=== PATIENT | male | born 1960 | race Caucasian/White ===

== ENCOUNTER 2016-06-27 15:10 | Emergency (ER) | payer MEDICARE, OTHER ==
[~2016-06-27] VITALS: Ht 185.4 cm; Wt 113.5 kg
[~2016-06-27 15:10] MED LIST: CITA20 PO; EFFE150C PO; FINA5TAB77 PO; FLUT1SPR9 EACH NARE; GABA300C3 PO; GLUC1000 PO; LINA290C PO; META48.53 PO; SIMV10 PO; SUBO8MIS SL; TERA5 PO; ZOLP10TA3 PO
[2016-06-27 15:11] VITALS: BP 126/85; PULSE 118; RESP 20; TEMP 98.5; O2SAT 92
--- NOTE | 2016-06-27 15:47 | PD ---
HPI Chief Complaint: Respiratory Symptoms Time Seen by Provider: 15:47 Travel History International Travel<30 days: No Contact w/Intl Traveler<30days: No Traveled to known affect area: No History of Present Illness HPI 55-year-old male with history of diabetes, presents to the emergency department for evaluation of left-sided chest pain worsening over the last 4 days. Patient states it is intermittent and occurs with deep inspiration. It radiates to his back. States that it has been so bad at times where he cannot get out of bed. Denies any nausea or vomiting. No recent illnesses, fever, or chills. Patient reports this is a diaphoresis or dizziness. Patient denies tobacco cigarette smoking however reports occasional marijuana use. Patient is on Suboxone currently. Denies IV drug use. He has no other symptoms to report at this time. [facility] Past Medical History ADD: Yes Arthritis: Yes Autoimmune Disease: No Blood Disorders: No Anxiety: Yes Depression: Yes Cancer: No Cardiovascular Problems: Yes High Cholesterol: Yes Diabetes: Yes Endocrine: Yes Genitourinary: No Immune Disorder: No Musculoskeletal: Yes (STATES HAVING BACK SURGERY IN [facility] - SCHEDULED FOR 07/2008) Neurologic: No Psychiatric: Yes Reproductive: No Respiratory: No Thyroid Disease: No Past Surgical History Abdominal Surgery: No AICD: No Arteriovenous Shunt: No Body Medical Devices: FOUR SCREWS IN RIGHT LEG. HX OF TENS UNIT Cardiac Surgery: No Ear Surgery: No Endocrine Surgery: No Eye Surgery: No Genitourinary Surgery: No Insulin Pump: No Oral Surgery: No Pacemaker: No Thoracic Surgery: No Other Surgery: Yes Social History Alcohol Use: No Tobacco Use: No Substance Use: No Allergies-Medications (Allergen,Severity, Reaction): Coded Allergies: No Known Allergies (Verified , 01/31/16) Reported Meds & Prescriptions Reported Meds & Active Scripts Active Reported Glucophage 1000 mg (Metformin HCl) 1,000 Mg Tab 1,000 Mg PO BID Linzess (Linaclotide) 290 Mcg Cap 290 Mcg PO DAILY Hytrin 5 Mg Cap (Terazosin HCl) 5 Mg Cap 5 Mg PO DAILY Proscar 5 Mg Tab (Finasteride) 5 Mg Tab 5 Mg PO DAILY Suboxone 8 mg/2 mg 8 mg/2 mg Subl 1 Strip SL TID SUBLINGUAL STRIP. Ambien 10 Mg Tab (Zolpidem Tartrate) 10 Mg Tab 10 Mg PO HS PRN Simvastatin 10 mg (Simvastatin) 10 Mg Tab 10 Mg PO HS Effexor Xr (Venlafaxine HCl) 150 Mg Cap 300 Mg PO DAILY Metamucil Original Textur (Psyllium/Dextrose) Pow 1 Tsp PO DAILY PRN Gabapentin 300 Mg Cap 300 Mg PO TID Flonase Allergy Relief (Fluticasone Propionate (Nasal)) 50 Mcg/Act Spr 1 [place] EACH NARE HS PRN Celexa 20 Mg Tab (Citalopram Hydrobromide) 20 Mg Tab 20 Mg PO DAILY Review of Systems Except as stated in HPI: all other systems reviewed are Neg Physical Exam Narrative GENERAL: Well-nourished male patient, lying in bed in no acute distress. SKIN: Warm and dry. HEAD: Atraumatic. Normocephalic. EYES: Pupils equal and round. No scleral icterus. No injection or drainage. ENT: No nasal bleeding or discharge. Mucous membranes pink and moist. NECK: Trachea midline. No JVD. CARDIOVASCULAR: Tachycardic rate and rhythm. No murmur appreciated. RESPIRATORY: No accessory muscle use. Diminished to auscultation. Breath sounds equal bilaterally. GASTROINTESTINAL: Abdomen soft, non-tender, nondistended. Hepatic and splenic margins not palpable. MUSCULOSKELETAL: No obvious deformities. No clubbing. No cyanosis. No edema. NEUROLOGICAL: Awake and alert. No obvious cranial nerve deficits. Motor grossly within normal limits. Normal speech. Data Data Last Documented VS Vital Signs Date Time Temp Pulse Resp B/P Pulse Ox O2 Delivery O2 Flow Rate FiO2 06/27/16 15:11 98.5 118 20 126/85 92 Room Air Orders Electrocardiogram (06/27/16 15:41) Complete Blood Count With Diff (06/27/16 15:41) Basic Metabolic Panel (Bmp) (06/27/16 15:41) Ckmb (Isoenzyme) Profile (06/27/16 15:41) Troponin I (06/27/16 15:41) Chest, Single Ap (06/27/16 15:41) Iv Access Insert/Monitor (06/27/16 15:41) Ecg Monitoring (06/27/16 15:41) Oxygen Administration (06/27/16 15:41) Oximetry (06/27/16 15:41) D-Dimer (06/27/16 15:46) Coag Profile (3/1/17 15:46) Labs Laboratory Tests Test 06/27/16 15:55 White Blood Count 8.4 TH/MM3 Red Blood Count 4.25 MIL/MM3 Hemoglobin 11.3 GM/DL Hematocrit 33.6 % Mean Corpuscular Volume 79.2 FL Mean Corpuscular Hemoglobin 26.6 PG Mean Corpuscular Hemoglobin 33.6 % Concent Red Cell Distribution Width 16.0 % Platelet Count 325 TH/MM3 Mean Platelet Volume 7.7 FL Neutrophils (%) (Auto) 67.4 % Lymphocytes (%) (Auto) 19.8 % Monocytes (%) (Auto) 10.2 % Eosinophils (%) (Auto) 2.3 % Basophils (%) (Auto) 0.3 % Neutrophils # (Auto) 5.6 TH/MM3 Lymphocytes # (Auto) 1.7 TH/MM3 Monocytes # (Auto) 0.9 TH/MM3 Eosinophils # (Auto) 0.2 TH/MM3 Basophils # (Auto) 0.0 TH/MM3 CBC Comment AUTO DIFF Differential Total Cells 100 Counted Neutrophils % (Manual) 53 % Lymphocytes % 23 % Monocytes % 14 % Eosinophils % 3 % Basophils % 2 % Neutrophils # (Manual) 4.9 TH/MM3 Metamyelocytes 1 % Myelocytes 3 % Promyelocytes 1 % Differential Comment FINAL DIFF MANUAL Platelet Estimate NORMAL Platelet Morphology Comment NORMAL Red Cell Morphology Comment NORMAL Prothrombin Time 10.0 SEC Prothromb Time International 0.9 RATIO Ratio Activated Partial 29.9 SEC Thromboplast Time D-Dimer Quantitative (PE/DVT) 6.45 MG/L FEU Sodium Level 135 MEQ/L Potassium Level 4.3 MEQ/L Chloride Level 97 MEQ/L Carbon Dioxide Level 30.5 MEQ/L Anion Gap 8 MEQ/L Blood Urea Nitrogen 11 MG/DL Creatinine 1.03 MG/DL Estimat Glomerular Filtration 75 ML/MIN Rate Random Glucose 135 MG/DL Calcium Level 8.8 MG/DL Total Creatine Kinase 41 U/L Troponin I LESS THAN 0.02 NG/ML MDM Medical Decision Making Medical Screen Exam Complete: Yes Emergency Medical Condition: Yes Medical Record Reviewed: Yes Differential Diagnosis PE versus pneumothorax versus pneumonia versus ACS Narrative Course 55-year-old male presents to the emergency department for evaluation. Workup was initiated in triage. Was a medical bed becomes available, patient will be transferred and care assumed by the provider. Condition: Stable Samantha Puente Jun 27, 2016 15:47
[2016-06-27 16:09] LABS: AUTOMATED NEUTROPHIL # 5.6 TH/MM3 (1.8-7.7); BASOPHIL % 0.3 % (0.0-2.0); EOSINOPHIL # 0.2 TH/MM3 (0-0.4); EOSINOPHIL % 2.3 % (0.0-4.0); HEMATOCRIT 33.6 % (39.0-51.0); LYMPH % 19.8 % (9.0-44.0); LYMPHOCYTE # 1.7 TH/MM3 (1.0-4.8); MEAN CELL VOLUME 79.2 FL (80.0-100.0); MEAN CORPUSCULAR HEMOGLOBIN 26.6 PG (27.0-34.0); MEAN CORPUSCULAR HGB CONC 33.6 % (32.0-36.0); MONO % 10.2 % (0.0-8.0); NEUT % 67.4 % (16.0-70.0); PLATELET COUNT 325 TH/MM3 (150-450); RED BLOOD COUNT 4.25 MIL/MM3 (4.50-5.90); WHITE BLOOD COUNT 8.4 TH/MM3 (4.0-11.0)
[2016-06-27 16:21] LABS: HEMO FLAGS AUTO DIFF
--- NOTE | 2016-06-27 16:27 | RADRPT ---
EXAM DATE/TIME: 06/27/2016 15:55 [facility] COMPARISON: CHEST SINGLE AP, January 31, 2016, 13:46. INDICATIONS : Chest pain. MEDICAL HISTORY: Diabetes mellitus type II. SURGICAL HISTORY : Spinal pain pump. ENCOUNTER: Initial ACUITY: 2 days PAIN SCORE: 5/10 LOCATION: Chest FINDINGS: Right lung is clear. There are increasing consolidative changes present in the left base when compare d to the most recent comparison study. The heart is minimally enlarged. Pulmonary vascularity is normal. Portions of the bony skeleton visu alized are unremarkable. CONCLUSION: Left lower lobe consolidation. Darrian Parry MD FACR on June 27, 2016 at 16:18 Board Certified Radiologist. This report was verified electronically.
[2016-06-27 16:30] LABS: APTT (PATIENT) 29.9 SEC (24.3-30.1); INTERNATIONAL NORMALIZED RATIO 0.9 RATIO
[2016-06-27 16:34] LABS: ANION GAP 8 MEQ/L (5-15); BICARBONATE 30.5 MEQ/L (21.0-32.0); BLOOD UREA NITROGEN 11 MG/DL (7-18); CHLORIDE 97 MEQ/L (98-107); GLOMERULAR FILTRATION RATE 75 ML/MIN (>89); POTASSIUM 4.3 MEQ/L (3.5-5.1); SODIUM (NA) 135 MEQ/L (136-145)
[2016-06-27 16:49] LABS: CREATINE KINASE 41 U/L (39-308)
[2016-06-27 17:40] LABS: BASOPHILS 2 % (0-2); EOSINOPHILS 3 % (0-4); METAMYELOCYTES 1 % (0-1); MYELOCYTES 3 % (0-0); NEUTROPHIL # MANUAL DIFF 4.9 TH/MM3 (1.8-7.7); POLYS (SEG NEUTROPHILS) 53 % (16-70); PROMYELOCYTES 1 % (0-0); WBC DIFF SAMPLE 100
[2016-06-27 17:41] LABS: PLATELET ESTIMATE SMEAR NORMAL (NORMAL); PLATELET MORPHOLOGY NORMAL (NORMAL); SCAN/DIFF FINAL DIFF MANUAL
[2016-06-28] MEDS ORDERED: METF1000 PO (16:49)
[2016-06-28] MEDS ORDERED: LINA290C PO (16:49)
[2016-06-28] MEDS ORDERED: FINA5TAB2 PO (16:49)
[2016-06-28] MEDS ORDERED: AMBI10TA PO (16:49)
[2016-06-28] MEDS ORDERED: CELE20TA PO (16:49)
[2016-06-28] MEDS ORDERED: GABA300C5 PO (16:49)
[2016-06-28] MEDS ORDERED: ZOCO10TA PO (16:49)
[2016-06-28] MEDS ORDERED: SUBO8MIS SL (16:49)
--- NOTE | 2016-06-28 23:59 | EKG ---
Date Performed: 06/27/2016 Time Performed: 15:47:45 PTAGE: 55 years EKG: Sinus rhythm POSSIBLE LEFT ATRIAL ENLARGEMENT MODERATE INTRAVENTRICULAR CONDUCTION DELAY BORDERLINE ECG PREVIOUS TRACING : 10/01/2001 12.32 Compared to prior tracing no significant change DOCTOR: Rafael Peralta Interpretating Date/Time 06/28/2016 23:58:25
== END 2016-06-27 18:05 | disposition left against medical advice (07) ==
LOC: NETRI 15:10
DX: R07.9 Chest pain, unspecified (principal); E11.9 Type 2 diabetes mellitus without complications; R94.31 Abnormal electrocardiogram [ECG] [EKG]; Z79.84 Long term (current) use of oral hypoglycemic drugs
CPT/HCPCS: 71010; 80048; 82550; 84484; 85007; 85027; 85379; 85610; 85730; 93005; 99284

== ENCOUNTER 2016-06-28 13:21 | Inpatient (IN) | payer MEDICARE, OTHER ==
[~2016-06-28] VITALS: Ht 185.4 cm; Wt 100.5 kg
[2016-06-28 13:24] VITALS: BP 130/72; PULSE 88; RESP 20; TEMP 97.9; O2SAT 89
--- NOTE | 2016-06-28 13:53 | PD ---
HPI Chief Complaint: Respiratory Symptoms Time Seen by Provider: 13:53 Travel History International Travel<30 days: No Contact w/Intl Traveler<30days: No Traveled to known affect area: No History of Present Illness HPI 55-year-old male with history of diabetes, presents to the emergency department for evaluation of left-sided chest pain worsening over the last 5 days. Patient was seen and evaluated yesterday in the emergency department but left AGAINST MEDICAL ADVICE prior to completion of his lab work. Patient states that his symptoms have worsened and the pain is not getting any better. He also had hemoptysis yesterday. Denies any recent illnesses. No fevers or chills. Moderate shortness of breath. No other symptoms to report. PFSH Past Medical History ADD: Yes Arthritis: Yes Autoimmune Disease: No Blood Disorders: No Anxiety: Yes Depression: Yes Cancer: No Cardiovascular Problems: Yes High Cholesterol: Yes Diabetes: Yes Endocrine: Yes Genitourinary: No Immune Disorder: No Musculoskeletal: Yes (STATES HAVING BACK SURGERY IN [facility] - SCHEDULED FOR 07/2008) Neurologic: No Psychiatric: Yes Reproductive: No Respiratory: No Thyroid Disease: No Past Surgical History Abdominal Surgery: No AICD: No Arteriovenous Shunt: No Body Medical Devices: FOUR SCREWS IN RIGHT LEG. HX OF TENS UNIT Cardiac Surgery: No Ear Surgery: No Endocrine Surgery: No Eye Surgery: No Genitourinary Surgery: No Insulin Pump: No Oral Surgery: No Pacemaker: No Thoracic Surgery: No Other Surgery: Yes Social History Alcohol Use: No Tobacco Use: No Substance Use: No Allergies-Medications (Allergen,Severity, Reaction): Coded Allergies: No Known Allergies (Verified , 06/28/16) Reported Meds & Prescriptions Reported Meds & Active Scripts Active Reported Finasteride 5 Mg Tab 5 Mg PO DAILY Do not crush. Zocor (Simvastatin) 10 Mg Tab 10 Mg PO DAILY Linzess (Linaclotide) 290 Mcg Cap 290 Mcg PO DAILY Gabapentin 300 Mg Cap 300 Mg PO TID Ambien (Zolpidem Tartrate) 10 Mg Tab 10 Mg PO HS PRN Suboxone Sublingual Film (Buprenorphine-Naloxone Sublingual Film) 8-2 Mg Film 1 Film SL TID Unique ID number required: Metformin (Metformin HCl) 1,000 Mg Tab 1,000 Mg PO BIDPC With meals Celexa (Citalopram Hydrobromide) 20 Mg Tab 20 Mg PO DAILY Review of Systems Except as stated in HPI: all other systems reviewed are Neg Physical Exam Narrative GENERAL: Well-nourished male patient, ambulatory and in no acute distress SKIN: Warm and dry. HEAD: Atraumatic. Normocephalic. EYES: Pupils equal and round. No scleral icterus. No injection or drainage. ENT: No nasal bleeding or discharge. Mucous membranes pink and moist. NECK: Trachea midline. No JVD. CARDIOVASCULAR: Regular rate and rhythm. No murmur appreciated. RESPIRATORY: No accessory muscle use. Diminished to auscultation. Breath sounds equal bilaterally. GASTROINTESTINAL: Abdomen soft, non-tender, nondistended. Hepatic and splenic margins not palpable. MUSCULOSKELETAL: No obvious deformities. No clubbing. No cyanosis. No edema. NEUROLOGICAL: Awake and alert. No obvious cranial nerve deficits. Motor grossly within normal limits. Normal speech. PSYCHIATRIC: Appropriate mood and affect; insight and judgment normal. Data Data Last Documented VS Vital Signs Date Time Temp Pulse Resp B/P Pulse Ox O2 Delivery O2 Flow Rate FiO2 06/28/16 13:24 97.9 88 20 130/72 89 Room Air Orders Iv Access Insert/Monitor (06/28/16 13:49) Ct Pulmonary Angiogram (06/28/16 ) Iohexol 350 Inj (Omnipaque 350 Inj) (06/28/16 14:40) Lactic Acid Sepsis Protocol (06/28/16 16:07) Complete Blood Count With Diff (06/28/16 16:07) Basic Metabolic Panel (Bmp) (06/28/16 16:07) Blood Culture (06/28/16 16:07) Ceftriaxone Inj (Rocephin Inj) (06/28/16 16:30) Azithromycin Inj (Zithromax Inj) (06/28/16 16:30) Sodium Chlor 0.9% 1000 Ml Inj (Ns 1000 M (06/28/16 16:30) Electrocardiogram (06/28/16 ) Aspirin (Aspirin) (06/28/16 18:45) Ckmb (Isoenzyme) Profile (06/28/16 18:53) Prothrombin Time / Inr (Pt) (06/28/16 18:53) Act Partial Throm Time (Ptt) (06/28/16 18:53) Troponin I (06/28/16 18:53) Admit Order (Ed Use Only) (06/28/16 18:54) Labs Laboratory Tests Test 06/28/16 06/28/16 16:00 16:17 White Blood Count 9.6 TH/MM3 Red Blood Count 4.24 MIL/MM3 Hemoglobin 11.4 GM/DL Hematocrit 34.0 % Mean Corpuscular Volume 80.1 FL Mean Corpuscular Hemoglobin 26.8 PG Mean Corpuscular Hemoglobin 33.5 % Concent Red Cell Distribution Width 16.1 % Platelet Count 363 TH/MM3 Mean Platelet Volume 7.7 FL Neutrophils (%) (Auto) 61.1 % Lymphocytes (%) (Auto) 23.6 % Monocytes (%) (Auto) 9.3 % Eosinophils (%) (Auto) 5.6 % Basophils (%) (Auto) 0.4 % Neutrophils # (Auto) 5.9 TH/MM3 Lymphocytes # (Auto) 2.3 TH/MM3 Monocytes # (Auto) 0.9 TH/MM3 Eosinophils # (Auto) 0.5 TH/MM3 Basophils # (Auto) 0.0 TH/MM3 CBC Comment AUTO DIFF Differential Total Cells 100 Counted Neutrophils % (Manual) 53 % Band Neutrophils % 4 % Lymphocytes % 27 % Monocytes % 7 % Eosinophils % 7 % Basophils % 1 % Neutrophils # (Manual) 5.6 TH/MM3 Myelocytes 1 % Differential Comment FINAL DIFF MANUAL Platelet Estimate NORMAL Platelet Morphology Comment NORMAL Sodium Level 139 MEQ/L Potassium Level 4.0 MEQ/L Chloride Level 98 MEQ/L Carbon Dioxide Level 33.9 MEQ/L Anion Gap 7 MEQ/L Blood Urea Nitrogen 10 MG/DL Creatinine 0.63 MG/DL Estimat Glomerular Filtration 132 ML/MIN Rate Random Glucose 96 MG/DL Lactic Acid Level 0.7 mmol/L Calcium Level 9.0 MG/DL [facility] Medical Decision Making Medical Screen Exam Complete: Yes Emergency Medical Condition: Yes Medical Record Reviewed: Yes Differential Diagnosis PE versus pneumonia versus influenza versus CHF versus ACS versus dissection Narrative Course 55-year-old male presents to the emergency department for evaluation of persistent worsening chest pain radiating to his back. Patient was seen and evaluated yesterday and left AGAINST MEDICAL ADVICE prior to completion of his workup. Patient presents today with oxygen saturation of 89% on room air. His labs were reviewed from yesterday with a d-dimer of 6.45. CBC was without acute concern. Mild anemia with hemoglobin of 11.3. No leukocytosis. BMP is within normal limits. I discussed this with Dr. Cooper who advised just moving forward with CT pulmonary angiogram. Last Impressions CT Angiography 06/28/16 0000 Signed Impressions: Service Date/Time: June 14:38 - CONCLUSION: 1. Bibasilar pneumonia greater in the left lower lobe. Treatment and followup recommended. 2. No evidence for pulmonary embolism. Jv Olvera MD Patient remains in triage. I discussed the patient with Dr. BELTRÁN as Dr. Cooper is in the middle of a trauma alert.. He recommends repeat lab work and admission based on patient's presentation of 89% oxygen saturation. This is ordered. Patient is brought back to a triage room where antibiotics were started for his pneumonia. Once A meD bed becomes available, patient will be transferred and care assumed by that provider. Condition: Stable Samantha Puente Jun 28, 2016 13:53
[2016-06-28] MEDS ORDERED: IOHEXOL 350 MG/ML 10 ML VIAL (for RAD DIAG) IV ONE (14:40)
--- NOTE | 2016-06-28 15:13 | RADRPT ---
EXAM DATE/TIME: 06/28/2016 14:38 [facility] COMPARISON: CHEST SINGLE AP, June 27, 2016, 15:55. INDICATIONS : Shortness of breath with coughing up blood and chest pain radiating to back for 5 days. IV CONTRAST: 75 cc Omnipaque 350 (iohexol) IV RADIATION DOSE: 23.24 CTDIvol (mGy) MEDICAL HISTORY : Cardiovascular disease. Diabetes mellitus type 2. SURGICAL HISTORY : None. ENCOUNTER: Initial ACUITY: 4 - 6 days PAIN SCALE: 7/10 LOCATION: chest TECHNIQUE: Volumetric scanning of the chest was performed using a pulmonary embolism protocol MIP images were re constructed. Using automated exposure control and adjustment of the mA and/or kV according to patien t size, radiation dose was kept as low as reasonably achievable to obtain optimal diagnostic quality images. FINDINGS: PULMONARY ARTERIES: No filling defects are seen in the pulmonary arteries through the segmental level. LUNGS: There is bibasilar consolidation greater in the left lower lobe. Minimal patchy densities in the uppe r portions of the lower lobes.. No concerning pulmonary nodule is visualized. PLEURAE: There is no pleural thickening or pleural effusion. MEDIASTINUM: There is good visualization of the great vessels of the middle mediastinum. No evidence of mediastin al or hilar adenopathy/mass. MUSCULOSKELETAL: Within normal limits for patient age. MISCELLANEOUS: The visualized upper abdominal organs demonstrate no acute abnormality. CONCLUSION: 1. Bibasilar pneumonia greater in the left lower lobe. Treatment and followup recommended. 2. No evidence for pulmonary embolism. Jv Olvera MD on June 28, 2016 at 15:07 Board Certified Radiologist. This report was verified electronically.
[2016-06-28] MEDS ORDERED: AZITHROMYCIN INJ 500 MG in SODIUM CHLOR 0.9% 250 ML INJ 250 ML IV ONE (16:30)
[2016-06-28] MEDS ORDERED: SODIUM CHLOR 0.9% 1000 ML INJ 1,000 ML IV ONE (16:30)
[2016-06-28] MEDS ORDERED: cefTRIAXone INJ 1,000 MG in SODIUM CHLORIDE 0.9% INJ 100 ML IV ONE (16:30)
[2016-06-28] MEDS ORDERED: SUBO8MIS SL (16:49)
[2016-06-28] MEDS ORDERED: LINA290C PO (16:49)
[2016-06-28] MEDS ORDERED: CELE20TA PO (16:49)
[2016-06-28] MEDS ORDERED: AMBI10TA PO (16:49)
[2016-06-28] MEDS ORDERED: GABA300C5 PO (16:49)
[2016-06-28] MEDS ORDERED: ZOCO10TA PO (16:49)
[2016-06-28] MEDS ORDERED: FINA5TAB2 PO (16:49)
[2016-06-28] MEDS ORDERED: METF1000 PO (16:49)
[2016-06-28 17:18] LABS: AUTOMATED NEUTROPHIL # 5.9 TH/MM3 (1.8-7.7); BASOPHIL % 0.4 % (0.0-2.0); EOSINOPHIL # 0.5 TH/MM3 (0-0.4); EOSINOPHIL % 5.6 % (0.0-4.0); LYMPH % 23.6 % (9.0-44.0); LYMPHOCYTE # 2.3 TH/MM3 (1.0-4.8); MEAN CELL VOLUME 80.1 FL (80.0-100.0); MEAN CORPUSCULAR HEMOGLOBIN 26.8 PG (27.0-34.0); MEAN CORPUSCULAR HGB CONC 33.5 % (32.0-36.0); MONO % 9.3 % (0.0-8.0); NEUT % 61.1 % (16.0-70.0); PLATELET COUNT 363 TH/MM3 (150-450); RED BLOOD COUNT 4.24 MIL/MM3 (4.50-5.90); RED CELL DISTRIBUTION WIDTH 16.1 % (11.6-17.2); WHITE BLOOD COUNT 9.6 TH/MM3 (4.0-11.0)
[2016-06-28 17:33] LABS: BICARBONATE 33.9 MEQ/L (21.0-32.0)
[2016-06-28 17:48] LABS: HEMO FLAGS AUTO DIFF
[2016-06-28 17:59] LABS: BANDS 4 % (0-6); BASOPHILS 1 % (0-2); EOSINOPHILS 7 % (0-4); MYELOCYTES 1 % (0-0); NEUTROPHIL # MANUAL DIFF 5.6 TH/MM3 (1.8-7.7); PLATELET ESTIMATE SMEAR NORMAL (NORMAL); PLATELET MORPHOLOGY NORMAL (NORMAL); POLYS (SEG NEUTROPHILS) 53 % (16-70); SCAN/DIFF FINAL DIFF MANUAL; WBC DIFF SAMPLE 100
[2016-06-28] MEDS ORDERED: ASPIRIN 325 MG TAB PO ONE (18:45)
--- NOTE | 2016-06-28 18:53 | PD ---
Physical Exam Date Seen by Provider: Jun 28, 2016 Data Data Last Documented VS Vital Signs Date Time Temp Pulse Resp B/P Pulse Ox O2 Delivery O2 Flow Rate FiO2 06/28/16 13:24 97.9 88 20 130/72 89 Room Air Orders Iv Access Insert/Monitor (06/28/16 13:49) Ct Pulmonary Angiogram (06/28/16 ) Iohexol 350 Inj (Omnipaque 350 Inj) (06/28/16 14:40) Lactic Acid Sepsis Protocol (06/28/16 16:07) Complete Blood Count With Diff (06/28/16 16:07) Basic Metabolic Panel (Bmp) (06/28/16 16:07) Blood Culture (06/28/16 16:07) Ceftriaxone Inj (Rocephin Inj) (06/28/16 16:30) Azithromycin Inj (Zithromax Inj) (06/28/16 16:30) Sodium Chlor 0.9% 1000 Ml Inj (Ns 1000 M (06/28/16 16:30) Electrocardiogram (06/28/16 ) Aspirin (Aspirin) (06/28/16 18:45) Ckmb (Isoenzyme) Profile (06/28/16 18:53) Prothrombin Time / Inr (Pt) (06/28/16 18:53) Act Partial Throm Time (Ptt) (06/28/16 18:53) Troponin I (06/28/16 18:53) Labs Laboratory Tests Test 06/28/16 06/28/16 16:00 16:17 White Blood Count 9.6 TH/MM3 Red Blood Count 4.24 MIL/MM3 Hemoglobin 11.4 GM/DL Hematocrit 34.0 % Mean Corpuscular Volume 80.1 FL Mean Corpuscular Hemoglobin 26.8 PG Mean Corpuscular Hemoglobin 33.5 % Concent Red Cell Distribution Width 16.1 % Platelet Count 363 TH/MM3 Mean Platelet Volume 7.7 FL Neutrophils (%) (Auto) 61.1 % Lymphocytes (%) (Auto) 23.6 % Monocytes (%) (Auto) 9.3 % Eosinophils (%) (Auto) 5.6 % Basophils (%) (Auto) 0.4 % Neutrophils # (Auto) 5.9 TH/MM3 Lymphocytes # (Auto) 2.3 TH/MM3 Monocytes # (Auto) 0.9 TH/MM3 Eosinophils # (Auto) 0.5 TH/MM3 Basophils # (Auto) 0.0 TH/MM3 CBC Comment AUTO DIFF Differential Total Cells 100 Counted Neutrophils % (Manual) 53 % Band Neutrophils % 4 % Lymphocytes % 27 % Monocytes % 7 % Eosinophils % 7 % Basophils % 1 % Neutrophils # (Manual) 5.6 TH/MM3 Myelocytes 1 % Differential Comment FINAL DIFF MANUAL Platelet Estimate NORMAL Platelet Morphology Comment NORMAL Sodium Level 139 MEQ/L Potassium Level 4.0 MEQ/L Chloride Level 98 MEQ/L Carbon Dioxide Level 33.9 MEQ/L Anion Gap 7 MEQ/L Blood Urea Nitrogen 10 MG/DL Creatinine 0.63 MG/DL Estimat Glomerular Filtration 132 ML/MIN Rate Random Glucose 96 MG/DL Lactic Acid Level 0.7 mmol/L Calcium Level 9.0 MG/DL [facility] Medical Record Reviewed: Yes Supervised Visit with CARLITOS: Yes Interpretation(s) Vital Signs Date Time Temp Pulse Resp B/P Pulse Ox O2 Delivery O2 Flow Rate FiO2 06/28/16 13:24 97.9 88 20 130/72 89 Room Air Last Impressions CT Angiography 06/28/16 0000 Signed Impressions: Service Date/Time: June 14:38 - CONCLUSION: 1. Bibasilar pneumonia greater in the left lower lobe. Treatment and followup recommended. 2. No evidence for pulmonary embolism. Jv Olvera MD CBC & BMP Diagram 06/28/16 16:00 06/28/16 16:17 Narrative Course I, Dr. Frye, have reviewed the advance practice practitioner's documentation and am in agreement, met with the patient face to face, made the diagnosis, and the medical decision making was done by me. Patient is a 55-year-old male with history of diabetes who returns to the emergency room for evaluation of left-sided pleuritic chest pain. Patient reports that for the past 5 days, he has had increased chest pain. Patient reports that chest pain is worse with taking deep breaths. Patient reports that he has been coughing, reports that he has been coughing up blood as well. Patient reports that he was seen in the emergency room yesterday but left AGAINST MEDICAL ADVICE as he was told that his dog was hit by a car and had to check on his dog. Patient reports that he return today for evaluation. Patient presents to emergency room today hypoxic with the oxygen sat of 89% on room air. Patient d-dimer was 6.45 yesterday, CT was performed today to rule out PE given his pleuritic chest pain and positive d-dimer. CTA showed that he had bibasilar pneumonia greater than left lower lobe with no obvious PE. Patient is agreeable to admission to the hospital. Patient has been pancultured and given azithromycin as well as Rocephin for treatment of pneumonia. *My assessment and Findings: Hypoxia with a pulse ox of 89% on room air (patient is not on home oxygen). Pleuritic chest pain secondary to multilobar pneumonia Case reviewed with Dr. Silva who admits patient to service under Dr. Dupont EKG at 1854: NSR at 67, qt/qtc: [id number]/425 Diagnosis Primary Impression: multilobar pneumonia Additional Impressions: Pleuritic chest pain Hypoxia Admitting Information Admitting Physician Requests: Admit Condition: Stable Harriett Frye DO Jun 28, 2016 18:53
[2016-06-28] MEDS ORDERED: ACETAMINOPHEN 325 MG TAB PO PRN (19:00)
[2016-06-28] MEDS ORDERED: SODIUM CHLORIDE 0.9% FLUSH 5 ML FLUSH FLUSH PRN (19:00)
[2016-06-28] MEDS ORDERED: NALOXONE HCL 0.4 MG/ML AMP IV PRN (19:00)
[2016-06-28] MEDS ORDERED: ONDANSETRON HCL 4 MG/2 ML VIAL IVP PRN (19:00)
[2016-06-28 19:14] VITALS: BP 126/65; PULSE 68; RESP 18; O2SAT 92
[2016-06-28 19:17] VITALS: O2SAT 96
[2016-06-28 19:40] LABS: APTT (PATIENT) 31.9 SEC (24.3-30.1); INTERNATIONAL NORMALIZED RATIO 0.9 RATIO; PROTHROMBIN TIME - PATIENT 10.2 SEC (9.8-11.6)
[2016-06-28 19:49] VITALS: O2SAT 96
[2016-06-28 19:58] LABS: CREATINE KINASE 32 U/L (39-308)
[2016-06-28] MEDS: SODIUM CHLORIDE 0.9% FLUSH 5 ML FLUSH FLUSH SCH (20:18)
[2016-06-28] MEDS: LEVOFLOXACIN 750 MG PREMIX INJ 150 ML IV SCH (21:30)
--- NOTE | 2016-06-28 22:50 | HHI.HP ---
[facility] Primary [facility] Physician [facility] Admission Diagnosis Multilobar Pneumonia Diagnoses: Chief Complaint: chest pain, sob Travel History International Travel<30 Days: No Contact w/Intl Traveler <30 Da: No Traveled to Known Affected Are: No History of Present Illness History taken from patient and the ED physician. 55-year-old male with no medical history presented to the ED with complaints of chest pain and short of breath for the past 3 days. Patient states he was in bed for 3 days because he was not feeling well, and came in yesterday for evaluation but had to leave AMA because his dog got hit by a car. He complains of having a cough with blood in his sputum, shortness of breath, and chest pain with deep breaths. Apon arrival patient o2 sat was found to be 89%. He denies any one else sick around him. He also denies any abdomen pain, nausea or vomiting. PCP at the [facility] Patient does wish to be discharged on PO antibiotics tomorrow if possible. Review of Systems Constitutional: COMPLAINS OF: Fatigue, DENIES: Fever, Chills Respiratory: COMPLAINS OF: Cough, Sputum production, Shortness of breath Cardiovascular: COMPLAINS OF: Chest pain, DENIES: Palpitations, Lower Extremity Edema Gastrointestinal: COMPLAINS OF: Vomiting, DENIES: Constipation, Diarrhea, Nausea Genitourinary: DENIES: Hematuria, Dysuria Musculoskeletal: DENIES: Back pain, Neck pain Integumentary: DENIES: Rash Hematologic/lymphatic: DENIES: Lymphadenopathy Immunologic/allergic: DENIES: Urticaria Neurologic: COMPLAINS OF: Headache Past Family Social History Past Medical History DM HTN (not currently on medication) BPH Past Surgical History RLE surgery Nerve stimulator in back 2008 Reported Medications Reported Meds & Active Scripts Active Reported Finasteride 5 Mg Tab 5 Mg PO DAILY Do not crush. Zocor (Simvastatin) 10 Mg Tab 10 Mg PO DAILY Linzess (Linaclotide) 290 Mcg Cap 290 Mcg PO DAILY Gabapentin 300 Mg Cap 300 Mg PO TID Ambien (Zolpidem Tartrate) 10 Mg Tab 10 Mg PO HS PRN Suboxone Sublingual Film (Buprenorphine-Naloxone Sublingual Film) 8-2 Mg Film 1 Film SL TID Unique ID number required: Metformin (Metformin HCl) 1,000 Mg Tab 1,000 Mg PO BIDPC With meals Celexa (Citalopram Hydrobromide) 20 Mg Tab 20 Mg PO DAILY Allergies: Coded Allergies: No Known Allergies (Verified , 06/28/16) Active Ordered Medications Current Medications Medications (Trade) Dose Ordered Sig/Merle Route Start Time Stop Time Status Last Admin (NS Flush) 2 ml UNSCH PRN FLUSH 06/28/16 19:00 (NS Flush) 2 ml BID FLUSH 06/28/16 21:00 06/28/16 20:18 (Tylenol) 650 mg Q4H PRN PO 06/28/16 19:00 (Zofran Inj) 4 mg Q6H PRN IVP 06/28/16 19:00 (Milk Of Magnesia Liq) 30 ml Q12H PRN PO 06/28/16 19:00 Naloxone HCl 0.4 mg 0.4 mg UNSCH PRN IV 06/28/16 19:00 (Levaquin 750 Mg Premix Inj) 150 ml @ 100 mls/hr Q24H IV 06/28/16 22:00 06/28/16 21:30 (CeleXA) 20 mg DAILY PO 06/29/16 09:00 (Proscar) 5 mg DAILY PO 06/29/16 09:00 (Neurontin) 300 mg TID PO 06/29/16 09:00 (Ambien) 10 mg HS PRN PO 06/28/16 21:15 (Pravachol) 20 mg DAILY PO 06/29/16 09:00 Patient Own Medication PT OWN MED:Linaclotide (Linzess) ... DAILY PO 06/29/16 09:00 Future Hold Family History Patient denies any family history Social History Tobacco use: denies Alcohol use: denies Illicit drug use: denies Physical Exam Vital Signs Vital Signs Date Time Temp Pulse Resp B/P Pulse Ox O2 Delivery O2 Flow Rate FiO2 06/28/16 19:49 96 Nasal Cannula 2.00 06/28/16 19:17 96 Nasal Cannula 2 06/28/16 19:14 68 18 126/65 92 Room Air 06/28/16 13:24 97.9 88 20 130/72 89 Room Air Physical Exam GENERAL: This is a well-nourished, well-developed patient, in no apparent distress. SKIN: No rashes, ecchymoses or lesions. Cool and dry. HEAD: Atraumatic. Normocephalic. EYES: Pupils equal round and reactive. ENT: Nose without bleeding, purulent drainage or septal hematoma. Airway patent. NECK: Trachea midline. No JVD CARDIOVASCULAR: Regular rate and rhythm without murmurs, gallops, or rubs. RESPIRATORY: Diminished Breath sounds equal bilaterally. No wheezes, rales, or rhonchi. GASTROINTESTINAL: Abdomen soft, non-tender, nondistended. No hepato-splenomegaly , or palpable masses. No guarding. MUSCULOSKELETAL: Extremities without clubbing, cyanosis, or edema. No joint tenderness, effusion, or edema noted. No calf tenderness. NEUROLOGICAL: Awake and alert. Motor and sensory grossly within normal limits. Normal speech. Laboratory Laboratory Tests Test 06/28/16 06/28/16 06/28/16 16:00 16:17 19:13 White Blood Count 9.6 Red Blood Count 4.24 Hemoglobin 11.4 Hematocrit 34.0 Mean Corpuscular Volume 80.1 Mean Corpuscular Hemoglobin 26.8 Mean Corpuscular Hemoglobin 33.5 Concent Red Cell Distribution Width 16.1 Platelet Count 363 Mean Platelet Volume 7.7 Neutrophils (%) (Auto) 61.1 Lymphocytes (%) (Auto) 23.6 Monocytes (%) (Auto) 9.3 Eosinophils (%) (Auto) 5.6 Basophils (%) (Auto) 0.4 Neutrophils # (Auto) 5.9 Lymphocytes # (Auto) 2.3 Monocytes # (Auto) 0.9 Eosinophils # (Auto) 0.5 Basophils # (Auto) 0.0 CBC Comment AUTO DIFF Differential Total Cells 100 Counted Neutrophils % (Manual) 53 Band Neutrophils % 4 Lymphocytes % 27 Monocytes % 7 Eosinophils % 7 Basophils % 1 Neutrophils # (Manual) 5.6 Myelocytes 1 Differential Comment FINAL DIFF MANUAL Platelet Estimate NORMAL Platelet Morphology Comment NORMAL Sodium Level 139 Potassium Level 4.0 Chloride Level 98 Carbon Dioxide Level 33.9 Anion Gap 7 Blood Urea Nitrogen 10 Creatinine 0.63 Estimat Glomerular Filtration 132 Rate Random Glucose 96 Lactic Acid Level 0.7 Calcium Level 9.0 Prothrombin Time 10.2 Prothromb Time International 0.9 Ratio Activated Partial 31.9 Thromboplast Time Total Creatine Kinase 32 Troponin I LESS THAN 0.02 Date/Time Procedure Status Source Growth 06/28/16 16:17 Aerobic Blood Culture Received Blood Peripheral Pending 06/28/16 16:17 Anaerobic Blood Culture Received Blood Peripheral Pending Result Diagram: 06/28/16 1600 06/28/16 [address] Angiography 06/28/16 0000 Signed Impressions: Service Date/Time: June 14:38 - CONCLUSION: 1. Bibasilar pneumonia greater in the left lower lobe. Treatment and followup recommended. 2. No evidence for pulmonary embolism. Jv Olvera MD Assessment and Plan Problem List: (1) Pneumonia ICD Code: J18.9 Status: Acute (2) DM (diabetes mellitus) ICD Code: E11.9 Status: Chronic Assessment and Plan 55 y/o male with a history of HTN (not currently on medication), DM, BPH presented with: Pneumonia Images: chest xray shows Bibasilar pneumonia greater in the left lower lobe. Treatment and followup recommended. No evidence for pulmonary embolism. -Levofloxacin IV DM, chronic -Accu checks AC/HS -hold Metformin due to CT angiogram DVT prophylaxis: SCDs Written by Rebekah MOY, acting as scribe for Dr. Dupont on 06/28/16 at 2237. The documentation accurately reflects the work performed [id number] and decisions made by me and the physician Dr Dupont on 06/28/16. The documentation accurately reflects the work performed [id number] by [place] on at 2237 Discussed Condition With Patient and ED physician Physician Certification 2 Midnight Certification Type: Admission for Inpatient Services Order for Inpatient Services The services are ordered in accordance with Medicare regulations or non- Medicare payer requirements, as applicable. In the case of services not specified as inpatient-only, they are appropriately provided as inpatient services in accordance with the 2-midnight benchmark. Estimated LOS (days): 3 days is the estimated time the patient will need to remain in the hospital, assuming treatment plan goals are met and no additional complications. Post-Hospital Plan: [place] Rebekah Denis Jun 28, 2016 22:50 Jocelin Dupont MD Jun 29, 2016 08:46
[2016-06-28] MEDS: ZOLPIDEM TARTRATE 10 MG TAB PO PRN (23:24)
[2016-06-28 23:34] VITALS: BP 128/61; PULSE 62; RESP 18; O2SAT 96
[2016-06-29] VITALS (7 sets, daily range): BP systolic 128–138; BP diastolic 57–87; PULSE 58–77; RESP 16–20; TEMP 97.4–98.5; O2SAT 92–99
[2016-06-29] MEDS: PRAVASTATIN SOD 20 MG TAB PO SCH (08:32)
[2016-06-29] MEDS: FINASTERIDE 5 MG TAB PO SCH (08:32)
[2016-06-29] MEDS: GABAPENTIN 300 MG CAP PO SCH ×3 (08:32→17:28)
[2016-06-29] MEDS: CITALOPRAM HYDROBROMIDE 20 MG TAB PO SCH (08:32)
[2016-06-29] MEDS: SODIUM CHLORIDE 0.9% FLUSH 5 ML FLUSH FLUSH SCH ×2 (08:32→20:29)
[2016-06-29] MEDS ORDERED: LINACLOTIDE 290 MCG PO SCH (09:00)
[2016-06-29] MEDS ORDERED: NON-FORMULARY DRUG (Linaclotide (Linzess) 290 MCG) PO SCH (09:00)
[2016-06-29] MEDS: MAGNESIUM HYDROXIDE SUSP 30 ML CUP PO PRN (10:20)
--- NOTE | 2016-06-29 12:00 | HHI.PR ---
Subjective Remarks This is a pleasant 55 y/o Male who came to ER with Multilobar Pneumonia, complaint of chest pain and Shortness of breath, for three days, he left AMA one day before when was seen in ER, he is been having cough and probable hemoptysis, Hypoxemic on admission, has DM II, Hypertension, BPH, RLE surgery, nerve stimulator back 2008, patient stable seen in the room in the presence of nurse Miss Lopez on CTA no PE, asked for Tylenol for pain, the patient wants to go home and asked for CXR and CBC for tomorrow in am and discharge Home if improving. Objective Vital Signs Date Time Temp Pulse Resp B/P Pulse Ox O2 Delivery O2 Flow Rate FiO2 06/29/16 10:21 97 21 06/29/16 00:58 Nasal Cannula 2.00 06/29/16 00:13 97.4 65 16 134/79 99 06/28/16 23:34 62 18 128/61 96 Nasal Cannula 2 06/28/16 19:49 96 Nasal Cannula 2.00 06/28/16 19:17 96 Nasal Cannula 2 06/28/16 19:14 68 18 126/65 92 Room Air 06/28/16 13:24 97.9 88 20 130/72 89 Room Air I/O 06/28/16 06/28/16 06/28/16 06/29/16 06/29/16 06/29/16 07:00 15:00 23:00 07:00 15:00 23:00 Intake Total 240 ml Output Total 0 ml Balance 240 ml Intake Oral 240 ml Output Urine Total 0 ml # Bowel Movements 0 Result Diagram: 06/28/16 1600 06/28/16 [address] Angiography 06/28/16 0000 Signed Impressions: Service Date/Time: June 14:38 - CONCLUSION: 1. Bibasilar pneumonia greater in the left lower lobe. Treatment and followup recommended. 2. No evidence for pulmonary embolism. Jv Olvera MD Procedures No procedures performed by patient. Other Results Laboratory Tests Test 06/28/16 06/28/16 06/28/16 16:00 16:17 19:13 White Blood Count 9.6 TH/MM3 Red Blood Count 4.24 MIL/MM3 Hemoglobin 11.4 GM/DL Hematocrit 34.0 % Mean Corpuscular Volume 80.1 FL Mean Corpuscular Hemoglobin 26.8 PG Mean Corpuscular Hemoglobin 33.5 % Concent Red Cell Distribution Width 16.1 % Platelet Count 363 TH/MM3 Mean Platelet Volume 7.7 FL Neutrophils (%) (Auto) 61.1 % Lymphocytes (%) (Auto) 23.6 % Monocytes (%) (Auto) 9.3 % Eosinophils (%) (Auto) 5.6 % Basophils (%) (Auto) 0.4 % Neutrophils # (Auto) 5.9 TH/MM3 Lymphocytes # (Auto) 2.3 TH/MM3 Monocytes # (Auto) 0.9 TH/MM3 Eosinophils # (Auto) 0.5 TH/MM3 Basophils # (Auto) 0.0 TH/MM3 CBC Comment AUTO DIFF Differential Total Cells 100 Counted Neutrophils % (Manual) 53 % Band Neutrophils % 4 % Lymphocytes % 27 % Monocytes % 7 % Eosinophils % 7 % Basophils % 1 % Neutrophils # (Manual) 5.6 TH/MM3 Myelocytes 1 % Differential Comment FINAL DIFF MANUAL Platelet Estimate NORMAL Platelet Morphology Comment NORMAL Sodium Level 139 MEQ/L Potassium Level 4.0 MEQ/L Chloride Level 98 MEQ/L Carbon Dioxide Level 33.9 MEQ/L Anion Gap 7 MEQ/L Blood Urea Nitrogen 10 MG/DL Creatinine 0.63 MG/DL Estimat Glomerular Filtration 132 ML/MIN Rate Random Glucose 96 MG/DL Lactic Acid Level 0.7 mmol/L Calcium Level 9.0 MG/DL Prothrombin Time 10.2 SEC Prothromb Time International 0.9 RATIO Ratio Activated Partial 31.9 SEC Thromboplast Time Total Creatine Kinase 32 U/L Troponin I LESS THAN 0.02 NG/ML Objective Remarks GENERAL: This is a well-nourished, well-developed patient, in no apparent distress. SKIN: No rashes, ecchymoses or lesions. Cool and dry. HEAD: Atraumatic. Normocephalic. EYES: Pupils equal round and reactive. ENT: Nose without bleeding, purulent drainage or septal hematoma. Airway patent. NECK: Trachea midline. No JVD CARDIOVASCULAR: Regular rate and rhythm without murmurs, gallops, or rubs. RESPIRATORY: Diminished Breath sounds equal bilaterally. No wheezes, rales, or rhonchi. GASTROINTESTINAL: Abdomen soft, non-tender, nondistended. No hepato-splenomegaly , or palpable masses. No guarding. MUSCULOSKELETAL: Extremities without clubbing, cyanosis, or edema. No joint tenderness, effusion, or edema noted. No calf tenderness. NEUROLOGICAL: Awake and alert. Motor and sensory grossly within normal limits. Normal speech. Medications and IVs Current Medications Medications (Trade) Dose Ordered Sig/Merle Route Start Time Stop Time Status Last Admin (NS Flush) 2 ml UNSCH PRN FLUSH 06/28/16 19:00 (NS Flush) 2 ml BID FLUSH 06/28/16 21:00 06/29/16 08:32 (Tylenol) 650 mg Q4H PRN PO 06/28/16 19:00 (Zofran Inj) 4 mg Q6H PRN IVP 06/28/16 19:00 (Milk Of Magnesia Liq) 30 ml Q12H PRN PO 06/28/16 19:00 06/29/16 10:20 Naloxone HCl 0.4 mg 0.4 mg UNSCH PRN IV 06/28/16 19:00 (Levaquin 750 Mg Premix Inj) 150 ml @ 100 mls/hr Q24H IV 06/28/16 22:00 06/28/16 21:30 (CeleXA) 20 mg DAILY PO 06/29/16 09:00 06/29/16 08:32 (Proscar) 5 mg DAILY PO 06/29/16 09:00 06/29/16 08:32 (Neurontin) 300 mg TID PO 06/29/16 09:00 06/29/16 08:32 (Ambien) 10 mg HS PRN PO 06/28/16 21:15 06/28/16 23:24 (Pravachol) 20 mg DAILY PO 06/29/16 09:00 06/29/16 08:32 Patient Own Medication PT OWN MED:Linaclotide (Linzess) ... DAILY PO 06/29/16 09:00 Hold A/P Assessment and Plan 1 Pneumonia has Bibasilar Pneumonia greater on the left lower lobe, on Levofloxacin rule out PE. continue Levofloxacin will follow CXR and CBC in am tomorrow. 2. DM II continue sliding scale. 3. Hypertension controlled. 4. BPH stable. DVT prophylaxis: SCDs Discharge Planning discharge home tomorrow if improving condition Ced Padilla MD Jun 29, 2016 12:00
[2016-06-29] MEDS: oxyCODONE/ACETAMINOPHEN 5 MG/325 MG TAB PO PRN ×2 (15:17→20:28)
[2016-06-29] MEDS: LEVOFLOXACIN 750 MG PREMIX INJ 150 ML IV SCH (20:28)
--- NOTE | 2016-06-29 23:19 | EKG ---
Date Performed: 06/28/2016 Time Performed: 18:54:42 PTAGE: 55 years EKG: Sinus rhythm NORMAL ECG PREVIOUS TRACING : 06/27/2016 15.47 DOCTOR: [place] Interpretating Date/Time 06/29/2016 23:16:09
[2016-06-30] MEDS: ZOLPIDEM TARTRATE 10 MG TAB PO PRN (00:32)
[2016-06-30] MEDS: oxyCODONE/ACETAMINOPHEN 5 MG/325 MG TAB PO PRN ×4 (00:32→16:35)
[2016-06-30] MEDS: CITALOPRAM HYDROBROMIDE 20 MG TAB PO SCH (07:55)
[2016-06-30] MEDS: MAGNESIUM HYDROXIDE SUSP 30 ML CUP PO PRN (07:55)
[2016-06-30] MEDS: SODIUM CHLORIDE 0.9% FLUSH 5 ML FLUSH FLUSH SCH (07:56)
[2016-06-30] MEDS: GABAPENTIN 300 MG CAP PO SCH ×3 (07:56→16:35)
[2016-06-30] MEDS: PRAVASTATIN SOD 20 MG TAB PO SCH (07:56)
[2016-06-30] MEDS: FINASTERIDE 5 MG TAB PO SCH (07:56)
[2016-06-30 08:00] VITALS: BP 129/80; PULSE 77; RESP 12; TEMP 98.4; O2SAT 95
[2016-06-30 09:21] LABS: AUTOMATED NEUTROPHIL # 6.1 TH/MM3 (1.8-7.7); BASOPHIL % 0.4 % (0.0-2.0); EOSINOPHIL # 0.5 TH/MM3 (0-0.4); EOSINOPHIL % 5.3 % (0.0-4.0); HEMATOCRIT 41.2 % (39.0-51.0); HEMO FLAGS DIFF FINAL; LYMPH % 21.6 % (9.0-44.0); MEAN CELL VOLUME 79.1 FL (80.0-100.0); MEAN CORPUSCULAR HEMOGLOBIN 26.9 PG (27.0-34.0); MEAN CORPUSCULAR HGB CONC 34.1 % (32.0-36.0); MONO % 6.3 % (0.0-8.0); NEUT % 66.4 % (16.0-70.0); PLATELET COUNT 523 TH/MM3 (150-450); RED BLOOD COUNT 5.21 MIL/MM3 (4.50-5.90); RED CELL DISTRIBUTION WIDTH 16.2 % (11.6-17.2); WHITE BLOOD COUNT 9.2 TH/MM3 (4.0-11.0)
[2016-06-30 09:40] LABS: BICARBONATE 33.2 MEQ/L (21.0-32.0); POTASSIUM 5.1 MEQ/L (3.5-5.1)
--- NOTE | 2016-06-30 10:11 | RADRPT ---
EXAM DATE/TIME: 06/30/2016 09:44 [place] COMPARISON: CT PULMONARY ANGIOGRAM, June 28, 2016, 14:38. CHEST SINGLE AP, June 27, 2016, 15:55. INDICATIONS : Short of Breath MEDICAL HISTORY : Cardiovascular disease. Diabetes mellitus type II. SURGICAL HISTORY : None. ENCOUNTER: Initial ACUITY: 1 week PAIN SCORE: 7/10 LOCATION: chest FINDINGS: Frontal and lateral views of the chest demonstrate normal-sized cardiac silhouette. There is persiste nt airspace consolidation in the left lower lobe with elevation of the left hemidiaphragm. No pleural effusion or pneumothorax is visualized. CONCLUSION: Stable consolidation in the left lower lobe. Joey Vicente MD on June 30, 2016 at 10:09 Board Certified Radiologist. This report was verified electronically.
[2016-06-30 12:00] VITALS: BP 124/70; PULSE 66; RESP 16; TEMP 98.2; O2SAT 95
[2016-06-30 16:00] VITALS: BP 134/87; PULSE 71; RESP 12; TEMP 97.1; O2SAT 95
--- NOTE | 2016-06-30 16:30 | HHI.PR ---
Subjective Remarks This is a pleasant 55 y/o Male who came to ER with Multilobar Pneumonia, complaint of chest pain and Shortness of breath, for three days, he left AMA one day before when was seen in ER, he is been having cough and probable hemoptysis, Hypoxemic on admission, has DM II, Hypertension, BPH, RLE surgery, nerve stimulator back 2008, patient stable seen in the room in the presence of nurse Miss Lopez on CTA no PE, asked for Tylenol for pain, patient stable walking in the aisle ready to go when I came to see him discussed results, he is receiving Levofloxacin will continue by mouth at home and follow with PCP. Objective Vital Signs Date Time Temp Pulse Resp B/P Pulse Ox O2 Delivery O2 Flow Rate FiO2 06/30/16 12:00 98.2 66 16 124/70 95 06/30/16 09:20 Room Air 21 06/30/16 08:00 98.4 77 12 129/80 95 06/29/16 20:00 Room Air 06/29/16 19:23 98.2 63 16 128/71 95 06/29/16 17:38 96 21 I/O 06/29/16 06/29/16 06/29/16 06/30/16 06/30/16 06/30/16 07:00 15:00 23:00 07:00 15:00 23:00 Intake Total 240 ml 720 ml 480 ml 720 ml Output Total 0 ml 950 ml 1225 ml Balance 240 ml -230 ml 480 ml -505 ml Intake Oral 240 ml 720 ml 480 ml 720 ml Output Urine Total 0 ml 950 ml 1225 ml # Voids 10 # Bowel Movements 0 0 1 0 Result Diagram: 06/30/16 0850 06/30/16 0850 Imaging Last Impressions Chest X-Ray 06/30/16 0000 Signed Impressions: Service Date/Time: Thursday, June 30, 2016 09:44 - CONCLUSION: Stable consolidation in the left lower lobe. Joey Vicente MD CT Angiography 06/28/16 0000 Signed Impressions: Service Date/Time: June 14:38 - CONCLUSION: 1. Bibasilar pneumonia greater in the left lower lobe. Treatment and followup recommended. 2. No evidence for pulmonary embolism. Jv Olvera MD Procedures No procedures performed by patient. Other Results Laboratory Tests Test 06/28/16 06/28/16 06/28/16 06/30/16 16:00 16:17 19:13 08:50 Differential Total Cells 100 Counted Neutrophils % (Manual) 53 % Band Neutrophils % 4 % Lymphocytes % 27 % Monocytes % 7 % Eosinophils % 7 % Basophils % 1 % Neutrophils # (Manual) 5.6 TH/MM3 Myelocytes 1 % Platelet Estimate NORMAL Platelet Morphology Comment NORMAL Lactic Acid Level 0.7 mmol/L Prothrombin Time 10.2 SEC Prothromb Time International 0.9 RATIO Ratio Activated Partial 31.9 SEC Thromboplast Time Total Creatine Kinase 32 U/L Troponin I LESS THAN 0.02 NG/ML White Blood Count 9.2 TH/MM3 Red Blood Count 5.21 MIL/MM3 Hemoglobin 14.0 GM/DL Hematocrit 41.2 % Mean Corpuscular Volume 79.1 FL Mean Corpuscular Hemoglobin 26.9 PG Mean Corpuscular Hemoglobin 34.1 % Concent Red Cell Distribution Width 16.2 % Platelet Count 523 TH/MM3 Mean Platelet Volume 7.6 FL Neutrophils (%) (Auto) 66.4 % Lymphocytes (%) (Auto) 21.6 % Monocytes (%) (Auto) 6.3 % Eosinophils (%) (Auto) 5.3 % Basophils (%) (Auto) 0.4 % Neutrophils # (Auto) 6.1 TH/MM3 Lymphocytes # (Auto) 2.0 TH/MM3 Monocytes # (Auto) 0.6 TH/MM3 Eosinophils # (Auto) 0.5 TH/MM3 Basophils # (Auto) 0.0 TH/MM3 CBC Comment DIFF FINAL Differential Comment Sodium Level 134 MEQ/L Potassium Level 5.1 MEQ/L Chloride Level 95 MEQ/L Carbon Dioxide Level 33.2 MEQ/L Anion Gap 6 MEQ/L Blood Urea Nitrogen 10 MG/DL Creatinine 0.83 MG/DL Estimat Glomerular Filtration 96 ML/MIN Rate Random Glucose 115 MG/DL Calcium Level 9.4 MG/DL Objective Remarks GENERAL: This is a well-nourished, well-developed patient, in no apparent distress. SKIN: No rashes, ecchymoses or lesions. Cool and dry. HEAD: Atraumatic. Normocephalic. EYES: Pupils equal round and reactive. ENT: Nose without bleeding, purulent drainage or septal hematoma. Airway patent. NECK: Trachea midline. No JVD CARDIOVASCULAR: Regular rate and rhythm without murmurs, gallops, or rubs. RESPIRATORY: Diminished Breath sounds equal bilaterally. No wheezes, rales, or rhonchi. GASTROINTESTINAL: Abdomen soft, non-tender, nondistended. No hepato-splenomegaly , or palpable masses. No guarding. MUSCULOSKELETAL: Extremities without clubbing, cyanosis, or edema. No joint tenderness, effusion, or edema noted. No calf tenderness. NEUROLOGICAL: Awake and alert. Motor and sensory grossly within normal limits. Normal speech. Medications and IVs Current Medications Medications (Trade) Dose Ordered Sig/Merle Route Start Time Stop Time Status Last Admin (NS Flush) 2 ml UNSCH PRN FLUSH 06/28/16 19:00 (NS Flush) 2 ml BID FLUSH 06/28/16 21:00 06/30/16 07:56 (Tylenol) 650 mg Q4H PRN PO 06/28/16 19:00 (Zofran Inj) 4 mg Q6H PRN IVP 06/28/16 19:00 (Milk Of Magnbreonna Liq) 30 ml Q12H PRN PO 06/28/16 19:00 06/30/16 07:55 Naloxone HCl 0.4 mg 0.4 mg UNSCH PRN IV 06/28/16 19:00 (Levaquin 750 Mg Premix Inj) 150 ml @ 100 mls/hr Q24H IV 06/28/16 22:00 06/29/16 20:28 (CeleXA) 20 mg DAILY PO 06/29/16 09:00 06/30/16 07:55 (Proscar) 5 mg DAILY PO 06/29/16 09:00 06/30/16 07:56 (Neurontin) 300 mg TID PO 06/29/16 09:00 06/30/16 16:35 (Ambien) 10 mg HS PRN PO 06/28/16 21:15 06/30/16 00:32 (Pravachol) 20 mg DAILY PO 06/29/16 09:00 06/30/16 07:56 Patient Own Medication PT OWN MED:Linaclotide (Linzess) ... DAILY PO 06/29/16 09:00 Hold (Percocet 5-325 Mg) 1 tab Q4H PRN PO 06/29/16 15:00 3/4/17 16:35 A/P Assessment and Plan 1 Pneumonia has Bibasilar Pneumonia greater on the left lower lobe, on Levofloxacin rule out PE. continue Levofloxacin, stable improving clinically, his CXR continue demonstrating stable left basal consolidation but improving clinically. 2. DM II continue sliding scale. 3. Hypertension controlled. 4. BPH stable. DVT prophylaxis: SCDs Discharge home and continue Levofloxacin for 7 more days to complete 10 and follow with PCP. Discharge Planning discharge home today. Ced Padilla MD Jun 30, 2016 16:30
[2016-06-30] MEDS ORDERED: LEVO750T33 PO ×3 (17:38→17:43)
--- NOTE | 2016-06-30 17:49 | HHI.DS ---
Discharge Summary Admission Date Jun 28, 2016 at 18:57 Discharge Date: Jun 30, 2016 Admitting Diagnosis Multilobar Pneumonia (1) Pneumonia ICD Code: J18.9 Diagnosis: Principal (2) DM (diabetes mellitus) ICD Code: E11.9 Diagnosis: Secondary Procedures No procedure performed. Brief History - From Admission History taken from patient and the ED physician. 55-year-old male with no medical history presented to the ED with complaints of chest pain and short of breath for the past 3 days. Patient states he was in bed for 3 days because he was not feeling well, and came in yesterday for evaluation but had to leave AMA because his dog got hit by a car. He complains of having a cough with blood in his sputum, shortness of breath, and chest pain with deep breaths. Apon arrival patient o2 sat was found to be 89%. He denies any one else sick around him. He also denies any abdomen pain, nausea or vomiting. PCP at the [facility] Patient does wish to be discharged on PO antibiotics tomorrow if possible. CBC/BMP: 06/30/16 0850 06/30/16 0850 Significant Findings Laboratory Tests Test 06/28/16 06/28/16 06/28/16 06/30/16 16:00 16:17 19:13 08:50 Red Blood Count 4.24 MIL/MM3 (4.50-5.90) Hemoglobin 11.4 GM/DL (13.0-17.0) Hematocrit 34.0 % (39.0-51.0) Mean Corpuscular Hemoglobin 26.8 PG 26.9 PG (27.0-34.0) (27.0-34.0) Monocytes (%) (Auto) 9.3 % (0.0-8.0) Eosinophils (%) (Auto) 5.6 % (0.0-4.0) 5.3 % (0.0-4.0) Eosinophils # (Auto) 0.5 TH/MM3 0.5 TH/MM3 (0-0.4) (0-0.4) Eosinophils % 7 % (0-4) Myelocytes 1 % (0-0) Carbon Dioxide Level 33.9 MEQ/L 33.2 MEQ/L (21.0-32.0) (21.0-32.0) Activated Partial 31.9 SEC Thromboplast Time (24.3-30.1) Total Creatine Kinase 32 U/L (39-308) Troponin I LESS THAN 0.02 NG/ML (0.02-0.05) Mean Corpuscular Volume 79.1 FL (80.0-100.0) Platelet Count 523 TH/MM3 (150-450) Sodium Level 134 MEQ/L (136-145) Chloride Level 95 MEQ/L (98-107) Random Glucose 115 MG/DL (74-106) Imaging Last Impressions Chest X-Ray 06/30/16 0000 Signed Impressions: Service Date/Time: Thursday, June 30, 2016 09:44 - CONCLUSION: Stable consolidation in the left lower lobe. Joey Vicente MD CT Angiography 06/28/16 0000 Signed Impressions: Service Date/Time: June 14:38 - CONCLUSION: 1. Bibasilar pneumonia greater in the left lower lobe. Treatment and followup recommended. 2. No evidence for pulmonary embolism. Jv Olvera MD PE at Discharge GENERAL: This is a well-nourished, well-developed patient, in no apparent distress. SKIN: No rashes, ecchymoses or lesions. Cool and dry. HEAD: Atraumatic. Normocephalic. EYES: Pupils equal round and reactive. ENT: Nose without bleeding, purulent drainage or septal hematoma. Airway patent. NECK: Trachea midline. No JVD CARDIOVASCULAR: Regular rate and rhythm without murmurs, gallops, or rubs. RESPIRATORY: Diminished Breath sounds equal bilaterally. No wheezes, rales, or rhonchi. GASTROINTESTINAL: Abdomen soft, non-tender, nondistended. No hepato-splenomegaly , or palpable masses. No guarding. MUSCULOSKELETAL: Extremities without clubbing, cyanosis, or edema. No joint tenderness, effusion, or edema noted. No calf tenderness. NEUROLOGICAL: Awake and alert. Motor and sensory grossly within normal limits. Normal speech. Hospital Course This is a pleasant 55 y/o Male who came to ER with Multilobar Pneumonia, complaint of chest pain and Shortness of breath, for three days, he left AMA one day before when was seen in ER, he is been having cough and probable hemoptysis, Hypoxemic on admission, has DM II, Hypertension, BPH, RLE surgery, nerve stimulator back 2008, patient stable seen in the room in the presence of nurse Miss Lopez on CTA no PE, asked for Tylenol for pain, patient stable walking in the aisle ready to go when I came to see him discussed results, he is receiving Levofloxacin will continue by mouth at home and follow with PCP. Pt Condition on Discharge: Good Discharge Disposition: Discharge Home Discharge Time: <= 30 minutes Discharge Instructions DIET: Follow Instructions for: Heart Healthy Diet, Diabetic Diet Speech Therapy-Diet Recommends: Regular Activities you can perform: Regular-No Restrictions Ced Padilla MD Jun 30, 2016 17:49
== END 2016-06-30 18:22 | disposition home or self-care (01) | DRG 194 ==
LOC: NEPC 13:21 → NEDA 18:57 → NEDH 22:55 → N04B 06-29 00:16
PROVIDERS: ADMIT Internal Medicine; ATTEND Internal Medicine
DX: J18.9 Pneumonia, unspecified organism (principal); R04.2 Hemoptysis; I10 Essential (primary) hypertension; E11.9 Type 2 diabetes mellitus without complications; D64.9 Anemia, unspecified; E78.00 Pure hypercholesterolemia, unspecified; N40.0 Benign prostatic hyperplasia without lower urinary tract symptoms; M19.90 Unspecified osteoarthritis, unspecified site; Z79.84 Long term (current) use of oral hypoglycemic drugs; R09.02 Hypoxemia; R94.31 Abnormal electrocardiogram [ECG] [EKG]
CPT/HCPCS: 71010; 71020; 71275; 80048; 82550; 83605; 84484; 85007; 85025; 85027; 85379; 85610; 85730; 87040; 93005; 96365; 96367; 99284; J0456; J0696; J1956; J7030; J7050; Q9967

== ENCOUNTER 2016-07-09 11:53 | Emergency (ER) | payer MEDICARE, OTHER ==
[~2016-07-09] VITALS: Ht 185.4 cm; Wt 109.0 kg
[~2016-07-09 11:53] MED LIST changes: +AMBI10TA PO; +CELE20TA PO; -CITA20 PO; -EFFE150C PO; +FINA5TAB2 PO; -FINA5TAB77 PO; -FLUT1SPR9 EACH NARE; -GABA300C3 PO; +GABA300C5 PO; -GLUC1000 PO; +LEVO750T33 PO; -META48.53 PO; +METF1000 PO; -SIMV10 PO; -TERA5 PO; +ZOCO10TA PO; -ZOLP10TA3 PO
[2016-07-09 11:55] VITALS: BP 127/80; PULSE 17; PULSE 84; RESP 15; TEMP 98; O2SAT 99
--- NOTE | 2016-07-09 12:17 | PD ---
HPI Chief Complaint: Pain: Acute or Chronic Time Seen by Provider: 12:15 Travel History International Travel<30 days: No Contact w/Intl Traveler<30days: No Traveled to known affect area: No History of Present Illness HPI 55-year-old male presents to emergency department with ongoing and increasing swelling in the left knee which is been present over the last month. He states it comes and goes is worse with when he rides his bicycle. Walking does not bother her as much. She denies any specific injury. He's been icing it but no other treatment. His primary care physician is at the [place]. He has not consulted him for this condition. He has no known drug allergies. [facility] Past Medical History ADD: Yes Arthritis: Yes Autoimmune Disease: No Blood Disorders: No Anxiety: Yes Depression: Yes Cancer: No Cardiovascular Problems: Yes High Cholesterol: Yes Diabetes: Yes Endocrine: Yes Genitourinary: Yes Immune Disorder: No Musculoskeletal: Yes (STATES HAVING BACK SURGERY IN [facility] - SCHEDULED FOR 07/2008) Neurologic: No Psychiatric: Yes Reproductive: No Respiratory: No Thyroid Disease: No Past Surgical History Abdominal Surgery: No AICD: No Arteriovenous Shunt: No Body Medical Devices: FOUR SCREWS IN RIGHT LEG. HX OF TENS UNIT, spinal implant Cardiac Surgery: No Ear Surgery: No Endocrine Surgery: No Eye Surgery: No Genitourinary Surgery: No Insulin Pump: No Oral Surgery: No Pacemaker: No Thoracic Surgery: No Other Surgery: Yes Social History Alcohol Use: No Tobacco Use: No Substance Use: No Allergies-Medications (Allergen,Severity, Reaction): Coded Allergies: No Known Allergies (Verified , 07/09/16) Reported Meds & Prescriptions Reported Meds & Active Scripts Active Reported Finasteride 5 Mg Tab 5 Mg PO DAILY Do not crush. Zocor (Simvastatin) 10 Mg Tab 10 Mg PO DAILY Linzess (Linaclotide) 290 Mcg Cap 290 Mcg PO DAILY Ambien (Zolpidem Tartrate) 10 Mg Tab 10 Mg PO HS PRN Suboxone Sublingual Film (Buprenorphine-Naloxone Sublingual Film) 8-2 Mg Film 1 Film SL TID Unique ID number required: Metformin (Metformin HCl) 1,000 Mg Tab 1,000 Mg PO BIDPC With meals Celexa (Citalopram Hydrobromide) 20 Mg Tab 20 Mg PO DAILY Review of Systems Except as stated in HPI: all other systems reviewed are Neg General / Constitutional: No: Fever Eyes: No: Visual changes HENT: No: Headaches Cardiovascular: No: Chest Pain or Discomfort Respiratory: No: Shortness of Breath Gastrointestinal: No: Abdominal Pain Genitourinary: No: Dysuria Musculoskeletal: Positive: Arthralgias, Limited ROM, Pain (see history of present illness.) Skin: No Rash Neurologic: No: Weakness Psychiatric: No: Depression Endocrine: No: Polydipsia Hematologic/Lymphatic: No: Easy Bruising Physical Exam Narrative GENERAL: Patient appears distress. SKIN: Warm and dry. Normal color. Normal turgor. No rash. HEAD: Atraumatic. Normocephalic. EYES: Pupils equal and round. No scleral icterus. No injection or drainage. ENT: No nasal bleeding or discharge. Mucous membranes pink and moist. NECK: Trachea midline. No JVD. CARDIOVASCULAR: Regular rate and rhythm. RESPIRATORY: No accessory muscle use. Clear to auscultation. Breath sounds equal bilaterally. MUSCULOSKELETAL: Extremities without clubbing, cyanosis, or edema. No obvious deformities. Patient has moderate effusion of the left knee. He has no point tenderness on either joint line. Flexion is limited secondary to discomfort and swelling. Porter's test is indeterminate. Negative drawer test. No signs of infection. NEUROLOGICAL: Awake and alert. No obvious cranial nerve deficits. Motor grossly within normal limits. Five out of 5 muscle strength in the arms and legs. Normal speech. PSYCHIATRIC: Appropriate mood and affect; insight and judgment normal. Data Data Last Documented VS Vital Signs Date Time Temp Pulse Resp B/P Pulse Ox O2 Delivery O2 Flow Rate FiO2 07/09/16 11:55 98.0 84 15 127/80 99 Orders Knee, Complete (4vws) (07/09/16 12:14) Splint Or Brace Apply/Monitor (07/09/16 12:59) [facility] Medical Decision Making Medical Screen Exam Complete: Yes Emergency Medical Condition: Yes Differential Diagnosis Left knee internal derangement. Arthritis. Left knee effusion. Possible Escobar cyst. Narrative Course Patient is medically stable at time of exam. X-ray of the left knee is ordered. X-ray shows effusion and moderate arthritis but no other acute findings per radiologist. Patient is placed in a knee immobilizer for comfort. Patient is given 800 mg ibuprofen 3 times daily with food #30. Patient is to ice the area frequently as much as possible. Patient is to follow with the [facility] for further evaluation and treatment as needed. Diagnosis Primary Impression: Effusion, left knee Referrals: [facility] [place] call for appointment Patient Instructions: General Instructions, Knee Immobilizer (ED) Additional Instructions: X-ray shows effusion and moderate arthritis but no other acute findings per radiologist. Patient is placed in a knee immobilizer for comfort. Patient is given 800 mg ibuprofen 3 times daily with food #30. Patient is to ice the area frequently as much as possible. Patient is to follow with the [facility] clinic for further evaluation and treatment as needed. Med/Other Pt SpecificInfo: Prescription(s) given Scripts Ibuprofen 800 Mg [id number] Mg PO Q8H PRN (Pain/Inflammation) #30 TAB Prov:Steven Calderon MD 07/09/16 Disposition: 01 DISCHARGE HOME Condition: Stable Caio Maldonado Jul 09, 2016 12:17
--- NOTE | 2016-07-09 12:56 | RADRPT ---
EXAM DATE/TIME: 07/09/2016 12:53 [facility] COMPARISON: No previous studies available for comparison. INDICATIONS : Patient states no known injury. It starts to hurt when he rides his bike. MEDICAL HISTORY : None. SURGICAL HISTORY : None. ENCOUNTER: Initial ACUITY: 1 day PAIN SCORE: 6/10 LOCATION: Left Posterior knee. FINDINGS: Four view examination of the left knee demonstrates no evidence of fracture or dislocation. Mild art hropathy is noted the patellofemoral joint. There is minimal subchondral sclerosis and marginal spurr ing along the surface of the patella. Bony mineralization is normal. The articular surfaces are inta ct. Increased density is identified in the suprapatellar bursa. CONCLUSION: Mild patellofemoral degenerative disease. Small joint effusion. No other significant abnormality. Andrade Fowler MD on July 09, 2016 at 12:54 Board Certified Radiologist. This report was verified electronically.
[2016-07-09] MEDS ORDERED: IBUP800T23 PO (13:00)
== END 2016-07-09 14:31 | disposition home or self-care (01) ==
LOC: NEPB 11:53
DX: M25.462 Effusion, left knee (principal); E11.9 Type 2 diabetes mellitus without complications; Z79.84 Long term (current) use of oral hypoglycemic drugs
CPT/HCPCS: 73564; 99283; L1830

== ENCOUNTER 2017-06-26 06:42 | Day surgery (SDC) | payer MEDICARE, OTHER ==
[~2017-06-26 06:42] MED LIST changes: -GABA300C5 PO; +IBUP1TAB7 PO; -LEVO750T33 PO
[2017-06-26 07:05] VITALS: BP 116/79; PULSE 95; RESP 20; TEMP 97.7; O2SAT 97
[2017-06-26] MEDS ORDERED: VENL50TA PO (07:27)
[2017-06-26] MEDS ORDERED: MELO7.5T27 PO (07:27)
[2017-06-26] MEDS ORDERED: CLON1TAB PO (07:27)
[2017-06-26] MEDS ORDERED: DIAZEPAM 5 MG TAB PO SCH (07:30)
[2017-06-26] MEDS ORDERED: LACTATED RINGER'S 1000 ML INJ 1,000 ML IV SCH (07:30)
== END 2017-06-26 07:55 | disposition home or self-care (01) ==
LOC: HROP 06:42 → HRIP 06:45 → HROP 07:55
PROVIDERS: ATTEND Orthopaedic Surgery Orthopaedic Surgery of the Spine
DX: M47.12 Other spondylosis with myelopathy, cervical region (principal); Z53.09 Procedure and treatment not carried out because of other contraindication

== ENCOUNTER 2017-06-28 06:51 | Day surgery (SDC) | payer MEDICARE, OTHER ==
[~2017-06-28] VITALS: Ht 185.4 cm; Wt 100.0 kg
[~2017-06-28 06:51] MED LIST changes: +CLON1TAB PO; +MELO7.5T27 PO; +VENL50TA PO
[2017-06-28 07:10] VITALS: BP 112/72; PULSE 80; RESP 20; TEMP 97.7; O2SAT 92
[2017-06-28] MEDS ORDERED: DIAZEPAM 5 MG TAB PO SCH (07:15)
[2017-06-28] MEDS ORDERED: LACTATED RINGER'S 1000 ML INJ 1,000 ML IV SCH ×2 (07:15→15:00)
[2017-06-28 08:06] LABS: AUTOMATED NEUTROPHIL # 2.8 TH/MM3 (1.8-7.7); BASOPHIL # 0.1 TH/MM3 (0-0.2); BASOPHIL % 1.1 % (0.0-2.0); EOSINOPHIL # 0.4 TH/MM3 (0-0.4); EOSINOPHIL % 7.2 % (0.0-4.0); HEMOGLOBIN 13.2 GM/DL (13.0-17.0); LYMPH % 35.9 % (9.0-44.0); LYMPHOCYTE # 2.1 TH/MM3 (1.0-4.8); MEAN CELL VOLUME 84.5 FL (80.0-100.0); MEAN CORPUSCULAR HEMOGLOBIN 29.4 PG (27.0-34.0); MEAN CORPUSCULAR HGB CONC 34.7 % (32.0-36.0); MEAN PLATELET VOLUME 8.2 FL (7.0-11.0); MONO % 8.4 % (0.0-8.0); MONOCYTE # 0.5 TH/MM3 (0-0.9); NEUT % 47.4 % (16.0-70.0); PLATELET COUNT 220 TH/MM3 (150-450); RED CELL DISTRIBUTION WIDTH 14.4 % (11.6-17.2); WHITE BLOOD COUNT 5.9 TH/MM3 (4.0-11.0)
[2017-06-28 08:21] LABS: BICARBONATE 26.6 MEQ/L (21.0-32.0); CALCIUM 8.7 MG/DL (8.5-10.1); CREATININE 0.71 MG/DL (0.60-1.30)
[2017-06-28] MEDS ORDERED: IOHEXOL 300 MG/ML 50 ML BTL (for RAD DIAG) IT ONE (10:06)
--- NOTE | 2017-06-28 10:19 | PD.RAD ---
Post Procedure Progress Note Pre Procedure Diagnosis: (1) Cervical spondylosis Post Procedure Diagnosis: (1) Cervical spondylosis Procedure Date: Jun 28, 2017 Supervising Radiologist: Gordo Bryant Proceduralist/Assist: RT Piotr(R), RT Catie(R)() Anesthesia: Local Plan of Activity Patient to Unit: ROPU Patient Condition: Good See PACS Report for procedural detail/treatment Gordo Bryant MD Jun 28, 2017 10:19
[2017-06-28] MEDS ORDERED: oxyCODONE/ACETAMINOPHEN 5 MG/325 MG TAB PO PRN (10:30)
--- NOTE | 2017-06-28 10:56 | RADRPT ---
EXAM DATE/TIME: 06/28/2017 09:56 [facility] COMPARISON: No previous studies available for comparison. INDICATIONS : Patient with history of cervical spondylosis with myelopathy in need of cervical myelogram. MEDICAL HISTORY : 1.Thoracic laminectomy with spinal stimulator placement. SURGICAL HISTORY : 1.BPH 2.Depression 3.Enlarged prostate 4.Chronic pain 5.Anxiety 6.Cervical spondylosis with myelopathy ENCOUNTER: Initial ACUITY: 1 month PAIN SCORE: 4/10 LOCATION: Lower back LUMBAR PUNCTURE TIME: 1006 hours FLUORO TIME: 0.6 minutes IMAGE SERIES: 2 CONTRAST: 12 cc Omnipaque (iohexol) 300 ACCESS LEVEL: L3-4 PROCEDURE : 1. Fluoroscopic guided lumbar puncture. 2. Instillation of intrathecal contrast. 3. Cervical myelogram. The risks, benefits and alternatives to the procedure were explained and verbal and written consent w as obtained. The site was prepped in sterile fashion. Full sterile technique was used, including ca p, mask, sterile gloves and gown and a large sterile sheet. Hand hygiene and 2% chlorhexidine and/or betadine/alcohol prep was utilized per protocol for cutaneous antisepsis. The skin and subcutaneous tissues were infiltrated with local anesthetic solution. With fluoroscopic guidance the lumbar thecal sac was punctured at level above and a diagnostic quanti ty of contrast is present in the subarachnoid space. Under fluoroscopic guidance contrast was moved t o the cervical region. The patient tolerated procedure well and there were no complications. CT scan is to be performed for further evaluation. CONCLUSION: Uncomplicated cervical myelogram as above. CT scan is to be performed for further evaluation. Gordo Bryant MD on June 28, 2017 at 10:55 Board Certified Radiologist. This report was verified electronically.
[2017-06-28 12:00] VITALS: BP 126/65; PULSE 51; RESP 18; TEMP 97.5; O2SAT 95
[2017-06-28 12:30] VITALS: BP 120/59; PULSE 46; RESP 18; O2SAT 95
[2017-06-28 13:00] VITALS: BP 102/66; PULSE 46; RESP 18; O2SAT 95
[2017-06-28 13:30] VITALS: BP 114/66; PULSE 48; RESP 18; O2SAT 95
[2017-06-28 14:00] VITALS: BP 120/60; PULSE 50; RESP 18; O2SAT 95
[2017-06-28] MEDS ORDERED: SODIUM CHLOR 0.9% 1000 ML INJ 1,000 ML IV PRN (14:00)
--- NOTE | 2017-06-28 15:08 | RADRPT ---
EXAM DATE/TIME: 06/28/2017 11:48 [facility] COMPARISON: No previous studies available for comparison. INDICATIONS : Cervical myelopathy. RADIATION DOSE: 31.34 CTDIvol (mGy) CT of thecervical spine was performed post myelogram. MEDICAL HISTORY : Hypertension. SURGICAL HISTORY : None. ENCOUNTER: Initial ACUITY: 1 day PAIN SCALE: 3/10 LOCATION: Bilateral neck TECHNIQUE: Volumetric scanning of the cervical spine was performed. Multiplanar reconstructions in the sagittal, coronal and oblique axial planes were performed. Using automated exposure control and adjustment o f the mA and/or kV according to patient size, radiation dose was kept as low as reasonably achievable to obtain optimal diagnostic quality images. DICOM format image data is available electronically f or review and comparison. FINDINGS: VERTEBRAE: Normal vertebral body height. ALIGNMENT: Very subtle less than 2 mm anterolisthesis of C3 on C4. C2-C3: Mild bilateral uncovertebral osteophytes moderate left facet arthropathy. No significant central nancy l narrowing. Mild left neural foraminal narrowing. C3-C4: Disc space narrowing with posterior disc osteophyte complex mild right and moderate to severe left fa cet arthropathy. There is central canal narrowing to approximately 7 mm with flattening of the cord. Mild to moderate right and severe left neural foraminal narrowing. C4-C5: Disc space narrowing with posterior disc osteophytes and mild bilateral facet arthropathy. Central ca nal narrowing to 8 mm with flattening of the cord. Mild right and moderate left neural foraminal narr owing. C5-C6: Disc space narrowing with posterior disc osteophyte complex and mild bilateral facet arthropathy. Yoni tral canal narrowing to 8 mm with slight flattening of the cord. Mild left neural foraminal narrowing . C6-C7: Posterior disc osteophytes with mild bilateral facet arthropathy. Central canal narrowing to 9 mm. No significant neural foraminal stenosis. C7-T1: The bony spinal canal is normal in size. No evidence of disc bulge or herniation. The neural forami na are bilaterally patent. CONCLUSION: 1. Multilevel degenerative spondylosis of the cervical spine most prominently at C3-6 with posterior disc osteophytes resulting in moderate to severe central canal stenosis. This is most severe at C3-4 with central canal narrowing to 7 mm. 2. Severe left neural foraminal narrowing at C3-4 secondary to osteophytes and facet arthropathy. 3. Please see above for detailed description of each level. Gordo Bryant MD on June 28, 2017 at 14:44 Board Certified Radiologist. This report was verified electronically.
== END 2017-06-28 14:00 | disposition home or self-care (01) ==
LOC: HROP 06:51 → HRIP 06:52 → HROP 14:00
PROVIDERS: ATTEND Orthopaedic Surgery Orthopaedic Surgery of the Spine
DX: M47.12 Other spondylosis with myelopathy, cervical region (principal); N40.0 Benign prostatic hyperplasia without lower urinary tract symptoms; F32.9 Major depressive disorder, single episode, unspecified; G89.29 Other chronic pain; F41.9 Anxiety disorder, unspecified; Z79.899 Other long term (current) drug therapy
CPT/HCPCS: 62302; 72125; 80048; 85025; 85610; 85730; J7120; Q9967; C1755

== ENCOUNTER → 2017-10-14 | Outpatient (CLI) | payer MEDICARE, OTHER ==
[~2017-10-14] MED LIST changes: -CELE20TA PO; -METF1000 PO; +MULT-65 PO; +TERA1CAP3 PO
[2017-10-14 11:08] LABS: AUTOMATED NEUTROPHIL # 3.9 TH/MM3 (1.8-7.7); BASOPHIL % 0.5 % (0.0-2.0); EOSINOPHIL # 0.5 TH/MM3 (0-0.4); EOSINOPHIL % 7.2 % (0.0-4.0); HEMATOCRIT 39.2 % (39.0-51.0); HEMOGLOBIN 13.1 GM/DL (13.0-17.0); LYMPH % 28.6 % (9.0-44.0); MEAN CELL VOLUME 85.6 FL (80.0-100.0); MEAN CORPUSCULAR HEMOGLOBIN 28.6 PG (27.0-34.0); MEAN CORPUSCULAR HGB CONC 33.4 % (32.0-36.0); MEAN PLATELET VOLUME 8.1 FL (7.0-11.0); MONO % 8.4 % (0.0-8.0); MONOCYTE # 0.6 TH/MM3 (0-0.9); NEUT % 55.3 % (16.0-70.0); PLATELET COUNT 276 TH/MM3 (150-450); RED BLOOD COUNT 4.58 MIL/MM3 (4.50-5.90); RED CELL DISTRIBUTION WIDTH 14.2 % (11.6-17.2)
[2017-10-14 11:14] LABS: BILIRUBIN, URINE NEG (NEG); BLOOD, URINE NEG (NEG); GLUCOSE,URINE NEG (NEG); KETONE, URINE NEG (NEG); MUCUS URINE FEW /lpf (OCC); NITRITE,URINE NEG (NEG); URINE COLOR YELLOW (YELLW/STRAW); URINE LEUKOCYTE ESTERASE NEG (NEG)
[2017-10-14 11:32] LABS: BICARBONATE 29.4 MEQ/L (21.0-32.0); CALCIUM 8.6 MG/DL (8.5-10.1); CREATININE 0.71 MG/DL (0.60-1.30)
--- NOTE | 2017-10-14 22:52 | EKG ---
Date Performed: 10/14/2017 Time Performed: 10:50:17 PTAGE: 56 years EKG: Sinus rhythm MODERATE INTRAVENTRICULAR CONDUCTION DELAY BORDERLINE ECG PREVIOUS TRACING : 06/28/2016 18.54 DOCTOR: [place] Interpretating Date/Time 10/14/2017 22:50:41
== END ==
LOC: CPRE 10:09
PROVIDERS: ATTEND Orthopaedic Surgery Orthopaedic Surgery of the Spine
DX: Z01.812 Encounter for preprocedural laboratory examination (principal); Z01.810 Encounter for preprocedural cardiovascular examination; M50.30 Other cervical disc degeneration, unspecified cervical region; M47.12 Other spondylosis with myelopathy, cervical region; R94.31 Abnormal electrocardiogram [ECG] [EKG]
CPT/HCPCS: 36415; 80048; 81001; 85025; 93005